=== PATIENT | male | born 1955 | race Two or more races ===

== ENCOUNTER 2018-09-19 08:49 | Outpatient (CLI) | payer OTHER ==
[~2018-09-19] VITALS: Ht 177.8 cm; Wt 93.9 kg
[2018-09-19] MEDS ORDERED: ZYRTEC10 MG ORAL (15:22)
[2018-09-19] MEDS ORDERED: DOK100 M1 PO (15:22)
[2018-09-19] MEDS ORDERED: SERTRALINE HCL50 MG ORAL (15:22)
[2018-09-19] MEDS ORDERED: SYNTHROID100 MCG ORAL (15:22)
[2018-09-19] MEDS ORDERED: ISOSORBIDE MONO30 M1 PO (15:22)
[2018-09-19] MEDS ORDERED: NITROGLYCERIN2.5 MG PO (15:22)
[2018-09-19] MEDS ORDERED: ATORVASTATIN CA20 MG ORAL (15:22)
[2018-09-19] MEDS ORDERED: NORCO 5-325 TA1 EACH ORAL (15:22)
[2018-09-19] MEDS ORDERED: VENTOLIN HFA18 GM INH (15:22)
[2018-09-19] MEDS ORDERED: IBUPROFEN600 MG ORAL (15:22)
[2018-09-19] MEDS ORDERED: METHOCARBAMOL750 MG ORAL (15:22)
[2018-09-19] MEDS ORDERED: ATROVENT HFA12.9 GM IH (15:22)
[2018-09-19] MEDS ORDERED: PANTOPRAZOLE SO40 MG ORAL (15:22)
[2018-09-19] MEDS ORDERED: CYCLOBENZAPRINE10 MG ORAL (15:22)
[2018-09-19] MEDS ORDERED: ASPIRIN EC81 MG ORAL (15:22)
[2018-09-19] MEDS ORDERED: SPIRIVA18 MCG INH (15:22)
[2018-09-19 15:26] VITALS: BP 116/69
--- NOTE | 2018-09-19 19:00 | Consultation ---
DATE OF CONSULTATION: 09/19/2018 CONSULTING PHYSICIAN: Imtiaz Fox M.D. CHIEF COMPLAINT: Referral for screening colonoscopy. HISTORY OF PRESENT ILLNESS: The patient is a 62-year-old male with past medical history of coronary artery disease, COPD, and multiple other medical problems, which I will dictate in a second, who was referred to us for screening colonoscopy. Last colonoscopy seven years ago. He had multiple polyps. PAST MEDICAL HISTORY: 1. COPD. 2. Hypothyroidism. 3. Depression. 4. Arthritis. 5. Coronary artery disease, status post stenting. PAST SURGICAL HISTORY: 1. History of coronary artery stenting. 2. Inguinal hernia repair. MEDICATIONS: Long medication list. Please refer to medication list. FAMILY HISTORY: No family history of GI malignancies. SOCIAL HISTORY: The patient drinks socially. He used to smoke, quit four years ago. Denies any IV drug abuse. ALLERGIES: No known allergies. REVIEW OF SYSTEMS: A 10-point review of systems was performed and pertinent positives in HPI. PHYSICAL EXAMINATION: VITAL SIGNS: Temperature 98.5, pulse is 88, respirations 20, blood pressure is 116/69. HEENT: Normocephalic and atraumatic. Sclerae anicteric. NECK: Supple. No evidence of obvious lymphadenopathy. CARDIOVASCULAR: Regular rhythm. Plus S1 and S2. No obvious murmur. LUNGS: Decreased breath sounds bilaterally based on the supine exam. ABDOMEN: Soft, nontender. No rebound. No guarding. No peritoneal sign. EXTREMITIES: No cyanosis. No clubbing. No edema. ASSESSMENT AND PLAN: This is a 62-year-old male with past medical history of chronic polyp. Last colonoscopy was 7 to 8 years ago, needs repeat colonoscopy. The patient was given instruction and information about colonoscopy, he agreed to it. We are going to get . Imtiaz Fox M.D. DR: ANA LUISA JOB#: [id number] CC:
== END 2018-09-19 10:49 | disposition home or self-care (01) ==
LOC: PAN 08:49
DX: K63.5 Polyp of colon (principal); J44.9 Chronic obstructive pulmonary disease, unspecified; I25.10 Atherosclerotic heart disease of native coronary artery without angina pectoris; E03.9 Hypothyroidism, unspecified; F32.9 Major depressive disorder, single episode, unspecified; M19.90 Unspecified osteoarthritis, unspecified site
CPT/HCPCS: 99202

== ENCOUNTER 2019-03-14 13:13 | Outpatient (CLI) | payer MEDICARE, OTHER ==
[~2019-03-14 13:13] MED LIST: ASPIRIN EC81 MG ORAL; ATORVASTATIN CA20 MG ORAL; ATROVENT HFA12.9 GM IH; CYCLOBENZAPRINE10 MG ORAL; DOK100 M1 PO; IBUPROFEN600 MG ORAL; ISOSORBIDE MONO30 M1 PO; METHOCARBAMOL750 MG ORAL; NITROGLYCERIN2.5 MG PO; NORCO 5-325 TA1 EACH ORAL; PANTOPRAZOLE SO40 MG ORAL; SERTRALINE HCL50 MG ORAL; SPIRIVA18 MCG INH; SYNTHROID100 MCG ORAL; VENTOLIN HFA18 GM INH; ZYRTEC10 MG ORAL
--- NOTE | 2019-03-14 13:48 | General Progress Note ---
Assessment/Plan Assessment/Plan: SUMMARY OF FINDINGS: 1. A 3 cm hiatal hernia. 2. Minimum distal esophagitis. 3. Gastritis, status post biopsy. 4. One rectal polyp removed, see above for details. 5. Internal hemorrhoids. RECOMMENDATIONS: \ repeat colonoscopy in 5 years add linzess 72 add nexium Subjective ROS Limited/Unobtainable: Yes Allergies: Coded Allergies: No Known Allergies (Unverified , 09/19/18) Objective General Appearance: alert EENT: normal ENT inspection Neck: supple Cardiovascular: normal rate Respiratory/Chest: decreased breath sounds Abdomen: normal bowel sounds, non tender, soft Extremities: non-tender Imtiaz Fox MD Mar 14, 2019 13:48
[2019-03-14 15:24] VITALS: BP 135/74
== END 2019-03-14 16:53 | disposition home or self-care (01) ==
LOC: PAN 13:13
DX: K44.9 Diaphragmatic hernia without obstruction or gangrene (principal); K62.1 Rectal polyp; K64.8 Other hemorrhoids; K20.9 Esophagitis, unspecified
CPT/HCPCS: 99212